=== PATIENT | male | born 2000 | race Two or more races ===

== ENCOUNTER 2025-07-05 20:05 | Emergency (ER) | payer MEDICAID, SELFPAY ==
[2025-07-05 20:06] VITALS: BMI 28.0
[2025-07-05 20:47] VITALS: BP 128/76; PULSE 99; RESP 19; TEMP 38.2; O2SAT 99
--- NOTE | 2025-07-05 21:32 | PD.EDRME ---
Rapid Medical Screening Exam RME Arrival date/time: 07/05/25 20:05 24M with no significant PMH presents to ED with several days of LLQ pain, diarrhea, and fevers/chills. Patient also got a BOYLE after having N/V. Chief Complaint: Nausea/Vomiting/Diarrhea Vital signs: Vital Signs Temperature 100.7 F H 07/05/25 20:47 Pulse Rate 99 07/05/25 20:47 Respiratory Rate 19 07/05/25 20:47 Blood Pressure 128/76 07/05/25 20:47 Pulse Oximetry (%) 99 07/05/25 20:47 Oxygen Delivery Method Room Air 07/05/25 20:47
[2025-07-05 21:45] LABS: Lactate (Lactic Acid) 0.6 mMol/L (0.4-2.0)
[2025-07-05 21:46] LABS: Basophils # (Auto) 0.0 Thou/mm3 (0.0-0.2); Basophils % (Auto) 0 % (0-2.5); Eosinophils # (Auto) 0.0 Thou/mm3 (0.0-0.5); Eosinophils % (Auto) 0 % (0-10); Hematocrit 49.8 % (41.0-53.0); Hemoglobin 16.8 g/dL (13.5-16.0); Immature Granulocytes Auto 0.05 Thou/mm3 (0.00-0.00); Lymphocytes # (Auto) 0.5 Thou/mm3 (1.0-4.8); Lymphocytes % (Auto) 3 % (10-50); Mean Corpuscular HGB Conc 33.7 g/dl (31.0-37.0); Mean Corpuscular Hemoglobin 29.7 pg (25.0-35.0); Mean Corpuscular Volume 88 fL (80-100); Monocytes # (Auto) 0.7 Thou/mm3 (0.0-0.8); Monocytes % (Auto) 5 % (0-12); Neutrophils # (Auto) 12.9 Thou/mm3 (1.8-7.7); Neutrophils % (Auto) 91 % (37-80); Nucleated Red Blood Cell # 0.00 Thou/mm3 (0.00-0.00); Nucleated Red Blood Cell % 0 /100 WBC (0); Platelet Count 247 Thou/mm3 (140-440); RDW Standard Deviation 42.7 fL (35.1-43.9); Red Blood Count 5.66 Miln/mm3 (4.50-5.90); White Blood Count 14.1 Thou/mm3 (3.8-10.6)
[2025-07-05 22:12] LABS: Alanine Aminotransferase 13 U/L (10-49); Albumin, Serum 5.2 gm/dL (3.5-5.0); Albumin/Globulin Ratio 1.9 (1.2-2.2); Alkaline Phosphatase 67 U/L (46-116); Anion Gap 9 (7-16); Aspartate Amino Transferase 14 U/L (0-34); BUN/Creatinine Ratio 11 Ratio (12-20); Bilirubin,Total 0.6 mg/dL (0.3-1.2); Blood Urea Nitrogen 13 mg/dL (9-23); Calcium 9.7 mg/dL (8.3-10.6); Calcium (Corrected) 9.7 mg/dL (8.5-10.1); Carbon Dioxide 24.0 mMol/L (20.0-31.0); Chloride 107 mMol/L (98-107); Creatinine (Component) 1.2 mg/dL (0.6-1.3); Estimated Creatinine Clearance 105.0 mL/min (>60); Globulin 2.7 gm/dL (2.3-3.5); Glucose 107 mg/dL (74-106); Osmolality,Calculated 279 (275-295); Potassium 4.5 mMol/L (3.4-5.1); Procalcitonin 0.21 ng/ml (0.0-0.49); Sodium 140 mMol/L (136-145); Total Protein 7.9 gm/dL (5.7-8.2); eGFR > 60 See Note
[2025-07-05 22:37] VITALS: BP 152/77; PULSE 81; RESP 18; TEMP 37.7; O2SAT 99
[2025-07-05 22:37] LABS: Collection Type, Urine Clean Catch; Squamous Epithelial Cell,Urine 0 /hpf (0-5)
[2025-07-05 22:47] LABS: Bilirubin,Urine Negative (Negative); Blood,Urine Negative (Negative); Clarity,Urine Clear (Clear/Hazy); Color,Urine Yellow (Lt Yel-Yel); Culture Indicated,Urine Not Indicated; Glucose, Urine Negative (Negative); Ketones,Urine Negative (Negative); Leukocyte Esterase,Urine Negative (Negative); Nitrite,Urine Negative (Negative); PH,Urine 5.5 (5.0-7.0); Protein,Urine 1+ (Neg - Trace); RBC,Urine 5 /hpf (0-3); Specific Gravity,Urine 1.039 (1.001-1.035); Urobilinogen,Urine Negative mg/dL (0.0-1.0); WBC,Urine 2 /hpf (0-5)
[2025-07-05 22:49] LABS: Amphetamine/Methamp Scrn,U Negative (Negative); Barbiturate Screen,Urine Negative (Negative); Benzodiazepines Screen,Urine Negative (Negative); Benzoylecgonine Screen, Ur Negative (Negative); Fentanyl Screen,Urine Negative (Negative); Opiate Screen,Urine Negative (Negative); THC Screen,Urine Negative (Negative)
[2025-07-05 23:10] VITALS: TEMP 37.7
[2025-07-05] MEDS: ACETAMINOPHEN 500 MG TABLET 1000 MG PO (23:10)
[2025-07-05] MEDS: ONDANSETRON ODT 4 MG TABRAP PO (23:11)
[2025-07-05 23:57] VITALS: BP 120/74; PULSE 103; RESP 19; TEMP 37.1; O2SAT 96
--- NOTE | 2025-07-06 00:53 | EDNOTE_ITS ---
Nausea/Vomit./Diarrhea-RME/HPI General Chief complaint: Nausea/Vomiting/Diarrhea Stated complaint: DIARRHEA X2 DAYS, ABD PAIN Arrival date/time: 07/05/25 20:05 Limitations: no limitations RME / HPI RME / HPI Narrative: 07/05/25 20:05 24M with no significant PMH presents to ED with several days of LLQ pain, diarrhea, and fevers/chills. Patient also got a BOYLE after having N/V. -------- Dr. Pendleton's Main ED Evaluation: 24yo male with no significant past medical history presents to the ED for complaints of N/V/D x 2 days. Emesis and stools are nonbloody. Patient denies any fever, chills, cough, chest pain, shortness of breath, or any other associated symptoms. NKA. Related Data Previous Rx's ?Medication ?Instructions ?Recorded ibuprofen 400 mg tablet 400 mg PO Q8H PRN pain #20 t abs 02/01/18 acetaminophen 500 mg tablet 1,000 mg (2 x 500 mg) PO Q 6H PRN 03/02/18 (Tylenol Extra Strength) pain #60 tabs loperamide 2 mg capsule 2 mg PO Q6H PRN loose stool #14 07/02/24 (Anti-Diarrheal (loperamide)) caps Allergies Allergy/AdvReac Type Severity Reaction Status Date / Time No Known Allergies Allergy Verified 07/02/24 11:49 Review of Systems Review of Systems Systems Reviewed: All systems reviewed, normal except as documented Past Medical History Past Medical History CARDIAC: Negative Congestive Heart Failure RESPIRATORY: Negative Chronic Obstructive Pulmonary Disease (COPD) GENITOURINARY: Negative Renal Disease ENDOCRINE: Negative Diabetes Mellitus Type 1 or Diabetes Mellitus Type 2 Social History SMOKING STATUS: Never smoker ED Exam General Limitations: Present no limitations General appearance: Present alert and in no apparent distress Head Head exam: Present atraumatic Eye Eye exam: Present normal appearance, PERRL and EOMI ENT ENT exam: Present normal exam, normal oropharynx and mucous membranes moist Neck Neck exam: Present normal inspection, full ROM and trachea midline Chest Chest inspection: Present normal inspection and symmetric chest wall rise Respiratory Respiratory exam: Present normal lung sounds bilaterally Cardiovascular Cardiovascular exam: Present regular rate, normal rhythm and normal heart sounds Abdominal Exam Abdominal exam: Present soft; Absent distention or tenderness Extremities Exam Extremities exam: Present normal inspection and full ROM Back Exam Back exam: Present normal inspection and full ROM Neurological Exam Neurological exam: Present alert, oriented X3 and CN II-XII intact Psychiatric Psychiatric exam: Present normal affect and normal mood Skin Skin exam: Present warm, dry, intact and normal color Course Quality Measures none Orders Category Date Time Status Bedside COVID-19 Antigen Test NOW Care 07/05/25 20:50 Active CBC Stat Lab 07/05/25 21:35 Completed CMP [Comprehensive Metabolic Panel] Stat Lab 07/05/25 21:35 Completed Drug Screen,Urine Stat Lab 07/05/25 22:06 Completed Lactate (Lactic Acid) Stat Lab 07/05/25 21:35 Completed Procalcitonin Stat Lab 07/05/25 21:35 Completed Urinalysis, C/S if Indicated Stat Lab 07/05/25 22:06 Completed Acetaminophen Tab [Tylenol ES Tab] Med 07/05/25 21:31 Discontinued 1,000 mg PO X1 ONE Ondansetron Odt [Zofran Odt] Med 07/05/25 21:31 Discontinued 4 mg PO X1 ONE Sodium Chloride 0.9% 1000 ml [Ns] 1,000 ml Med 07/06/25 00:55 Discontinued IV 999 mls/hr Sodium Chloride 0.9% 1000 ml [Ns] 1,000 ml Med 07/06/25 00:55 Discontinued IV 999 mls/hr Vital Signs Vital signs: Vital Signs Temperature 100.7 F H 07/05/25 20:47 Pulse Rate 99 07/05/25 20:47 Respiratory Rate 19 07/05/25 20:47 Blood Pressure 128/76 07/05/25 20:47 Pulse Oximetry (%) 99 07/05/25 20:47 Oxygen Delivery Method Room Air 07/05/25 20:47 Nausea/Vomiting/Diarrhea MDM Narrative MDM Narrative:: Scribe Attestation: 07/06/25 Elena Wolfe am scribing for and in the presence of Dr. Pendleton. Patient data External records reviewed:: [facility] previous records (Per chart review, patient was admitted here on 07/02/24 for gastroenteritis.) Clinical information provided by:: patient Social determinants that could affect healthcare access:: none Patient has the following chronic illnesses:: none How is presenting disease/condition affected by chronic disease/condition?: no chronic disease Evaluation data The following diagnostics were reviewed and interpreted by me:: lab results Lab and/or radiology exams considered but not ordered:: none Interpretation Summary: WBC 14.1, Hgb 16.8, CMP normal, Lactic Acid normal, Procalcitonin normal. UA unremarkable. UDS negative. Medications / Prescriptions Medications / Prescriptions considered but not ordered:: none Medication administrations:: Medication Administration History Discontinued Medications Acetaminophen (Acetaminophen 500 Mg Tablet) 1,000 mg PO X1 ONE Stop: 07/05/25 21:32 Last Admin: 07/05/25 23:10 Dose: 1,000 mg Documented By: HANSA Sodium Chloride (Ns) 1,000 mls @ 999 mls/hr IV .Q1H1M ONE Stop: 07/06/25 01:55 Last Infusion: 07/06/25 02:39 Dose: Infused Documented By: Admin: 07/06/25 01:36 Dose: 999 mls/hr Documented By: HANSA Sodium Chloride (Ns) 1,000 mls @ 999 mls/hr IV .Q1H1M ONE Stop: 07/06/25 01:55 Last Infusion: 07/06/25 02:39 Dose: Infused Documented By: Admin: 07/06/25 01:37 Dose: 999 mls/hr Documented By: HANSA Ondansetron HCl (Ondansetron Odt 4 Mg Tabrap) 4 mg PO X1 ONE; Protocol Stop: 07/05/25 21:32 Last Admin: 07/05/25 23:11 Dose: 4 mg Documented By: HANSA see above Consultations Consultation(s) initiated? (list below): No Diagnosis Nausea Differential Diagnosis: gastroenteritis, drug-induced nausea and vomiting, dehydration and other (electrolyte abnormality) Most likely diagnosis given after review of the tests above:: see clinical impression below Admission Indicated Admission indicated?: not indicated Admission Request Was there a request for admission?: No Disposition Plan Disposition Plan: Discharge Discharge Attestation Discharge Attestation: The patient and all family members were given an opportunity to ask questions and understood the discharge instructions. Discharge instructions specifically effects, indications for sooner follow up or return to the emergency department, and the expected course of current diagnosis. Patient condition: Stable Discharge Plan Plan Patient Disposition: HOME (Self Care) Patient condition on transfer: Stable Prescriptions/Referrals Prescriptions/Med Rec: No Action ibuprofen 400 mg tablet 400 mg PO Q8H PRN (Reason: pain) Qty: 20 0RF acetaminophen [Tylenol Extra Strength] 500 mg tablet 1,000 mg PO Q6H PRN (Reason: pain) Qty: 60 0RF loperamide [Anti-Diarrheal (loperamide)] 2 mg capsule 2 mg PO Q6H PRN (Reason: loose stool) Qty: 14 0RF Referrals: No Primary/Family,Physician [Primary Care Provider] - In 1 week Problem List Clinical Impression: Dehydration, Nausea vomiting and diarrhea Patient/Caregiver Discharge Instructions Education Materials: Dehydration, ED Diet for Vomiting or ... Additional Instructions: Return to the emergency department for worsening symptoms or any other concerns. Stay hydrated Pedialyte in the Gatorade. For fever you can take [id number] Tylenol 650 mg 3 times a day. You could also alternate with Motrin 600 mg 3 times a day as needed for fever. No work for the next 2 days. Stay out of the sun for the next 2 days. Print Language: Latvian Stand Alone Forms: Sue Award Info., Work/School Release, Patient Portal Info Letter
[2025-07-06 01:35] VITALS: BP 131/71; PULSE 60; RESP 20; TEMP 36.9; O2SAT 99
[2025-07-06] MEDS: SODIUM CHLORIDE 0.9% 1000 ML 1,000 ML 999 ML IV ×2 (01:36→01:37)
[2025-07-06 01:39] VITALS: TEMP 36.9
[2025-07-06 03:05] VITALS: BP 127/58; PULSE 72; RESP 16; TEMP 36.7; O2SAT 98
== END 2025-07-06 03:21 | disposition home or self-care (01) ==
PROVIDERS: Physician Assistant; Emergency Provider Emergency Medicine
DX: E86.0 Dehydration (principal); R11.2 Nausea with vomiting, unspecified; R19.7 Diarrhea, unspecified
CPT/HCPCS: 36415; 80053; 80307; 81001; 83605; 84145; 85025; 87811; 96360; 99284; J7030; Q0162; A9270